=== PATIENT | male | born 1965 | race Hispanic/Latino ===

== ENCOUNTER 2023-01-12 21:23 | Emergency (ER) | payer BC ==
[~2023-01-12] VITALS: Ht 160 cm; Wt 79.4 kg
[2023-01-12 21:48] LABS: BASOPHILS # (AUTO) 0.03 K/uL (0.00-0.20); BASOPHILS % (AUTO) 0.4 % (0.0-5.0); EOSINOPHILS # (AUTO) 0.14 K/uL (0.00-0.70); HEMATOCRIT 45.2 % (42-54); IMMATURE GRANULOCYTE ABSOLUTE 0.01 K/uL (0-1); LYMPHOCYTES % (AUTO) 28.7 % (21.0-51.0); MEAN CORPUSCULAR HEMOGLOBIN 31.8 pg (27.0-33.0); MEAN CORPUSCULAR HGB CONC 35.6 g/dL (32.0-36.0); MEAN CORPUSCULAR VOLUME 89.2 fL (79-99); MONOCYTES # (AUTO) 0.4 K/uL (0.1-1.0); MONOCYTES % (AUTO) 5.8 % (3.0-13.0); NEUTROPHILS # (AUTO) 4.3 K/uL (1.8-7.7); PLATELET COUNT (AUTO) 178 K/uL (130-400); RED BLOOD CELL COUNT(AUTO) 5.07 MIL/uL (4.50-6.20); RED CELL DISTRIBUTION WIDTH 11.9 % (11.0-15.5); WHITE BLOOD COUNT (AUTO) 6.9 K/uL (4.8-10.8)
[2023-01-12 22:06] LABS: INR < 0.93 (0.85-1.15); PROTHROMBIN TIME 10.4 SEC (9.6-11.6)
[2023-01-12 22:08] LABS: PARTIAL THROMBOPLASTIN TIME 27.9 SEC (26.3-35.5)
[2023-01-12 22:13] LABS: POTASSIUM 3.6 mmol/L (3.5-5.1)
[2023-01-12 22:23] LABS: ALBUMIN 4.1 g/dL (3.5-5.0); BILIRUBIN,TOTAL 0.7 mg/dL (0.2-1.0); TOTAL PROTEIN, SERUM 8.2 g/dL (6.0-8.3)
[2023-01-12 22:26] LABS: D-DIMER 457 ng/mL (0-500)
[2023-01-12 23:24] LABS: ADD UA MICROSCOPIC NO; APPEARANCE,URINE CLEAR (CLEAR); BILIRUBIN,URINE NEGATIVE (NEGATIVE); COLOR,URINE LIGHT-YELLOW (YELLOW); GLUCOSE, URINE (UA) NEGATIVE (NEGATIVE); KETONES,URINE NEGATIVE (NEGATIVE); LEUKOCYTE ESTERASE ,URINE NEGATIVE Leu/uL (NEGATIVE); NITRATE,URINE NEGATIVE (NEGATIVE); OCCULT BLOOD,URINE NEGATIVE (NEGATIVE); PROTEIN,URINE NEGATIVE (NEGATIVE); UROBILINOGEN,URINE 0.2 mg/dL (0.2-1.0)
[2023-01-12 23:42] LABS: B-TYPE NATRIURETIC PEPTIDE 10 pg/mL (0-100)
[2023-01-13] MEDS ORDERED: IBUP-1493 PO (00:10)
[2023-01-13] MEDS ORDERED: OMEP40CA21 PO (00:10)
[2023-01-13 00:27] VITALS: BP 124/61; PULSE 53; RESP 18; O2SAT 99
== END 2023-01-13 00:28 | disposition home or self-care (01) ==
LOC: EDH 21:23
DX: R07.89 Other chest pain (principal)
CPT/HCPCS: 36415; 71045; 80053; 81003; 82550; 83735; 83880; 84484; 85025; 85378; 85610; 85730; 93005

== ENCOUNTER 2023-03-11 10:59 | Emergency (ER) | payer BC ==
[~2023-03-11] VITALS: Ht 165.1 cm; Wt 79.4 kg
[~2023-03-11 10:59] MED LIST: IBUP-1493 PO; OMEP40CA21 PO
[2023-03-11] MEDS ORDERED: FAMOTIDINE 20MG TAB ONE (11:30)
[2023-03-11] MEDS ORDERED: SOLU-MEDROL 125MG VIAL ONE (11:31)
[2023-03-11] MEDS ORDERED: DiphenhydrAMINE HCL 50 MG/ML VIAL ONE (11:31)
[2023-03-11 11:54] LABS: BASOPHILS # (AUTO) 0.03 K/uL (0.00-0.20); BASOPHILS % (AUTO) 0.4 % (0.0-5.0); EOSINOPHILS # (AUTO) 0.02 K/uL (0.00-0.70); EOSINOPHILS % (AUTO) 0.3 % (0.0-8.0); HEMATOCRIT 39.9 % (42-54); IMMATURE GRANULOCYTE ABSOLUTE 0.04 K/uL (0-1); LYMPHOCYTES # (AUTO) 0.9 K/uL (1.0-4.8); LYMPHOCYTES % (AUTO) 11.9 % (21.0-51.0); MEAN CORPUSCULAR HEMOGLOBIN 31.2 pg (27.0-33.0); MEAN CORPUSCULAR HGB CONC 36.3 g/dL (32.0-36.0); MEAN CORPUSCULAR VOLUME 85.8 fL (79-99); MONOCYTES # (AUTO) 0.1 K/uL (0.1-1.0); NEUTROPHILS # (AUTO) 6.1 K/uL (1.8-7.7); NEUTROPHILS % (AUTO) 84.8 % (40.0-77.0); PLATELET COUNT (AUTO) 178 K/uL (130-400); RED BLOOD CELL COUNT(AUTO) 4.65 MIL/uL (4.50-6.20); RED CELL DISTRIBUTION WIDTH 11.8 % (11.0-15.5); WHITE BLOOD COUNT (AUTO) 7.2 K/uL (4.8-10.8)
[2023-03-11] MEDS ORDERED: DICYCLOMINE 20MG (10MG/ML) AMP IM ONE (12:00)
[2023-03-11] MEDS ORDERED: DiphenhydrAMINE HCL 50 MG/ML VIAL IV ONE (12:00)
[2023-03-11] MEDS ORDERED: SOLU-MEDROL 125MG VIAL IVP ONE (12:00)
[2023-03-11] MEDS ORDERED: FAMOTIDINE 20MG TAB PO ONE (12:00)
[2023-03-11] MEDS ORDERED: 0.9%NACL 1000ML 1,000 ML IV ONE (12:00)
[2023-03-11] MEDS ORDERED: ONDANSETRON 4MG INJ IVP ONE (12:00)
[2023-03-11 12:04] LABS: CREATININE 0.8 mg/dL (0.5-1.5); POTASSIUM 4.3 mmol/L (3.5-5.1)
[2023-03-11 12:12] LABS: ALBUMIN 3.5 g/dL (3.5-5.0); BILIRUBIN,TOTAL 0.8 mg/dL (0.2-1.0); TOTAL PROTEIN, SERUM 7.6 g/dL (6.0-8.3)
[2023-03-11 12:29] LABS: APPEARANCE,URINE CLEAR (CLEAR); BILIRUBIN,URINE NEGATIVE (NEGATIVE); COLOR,URINE COLORLESS (YELLOW); GLUCOSE, URINE (UA) NEGATIVE (NEGATIVE); KETONES,URINE NEGATIVE (NEGATIVE); LEUKOCYTE ESTERASE ,URINE NEGATIVE Leu/uL (NEGATIVE); NITRATE,URINE NEGATIVE (NEGATIVE); OCCULT BLOOD,URINE NEGATIVE (NEGATIVE); PH,URINE 7.5 (5.0-8.0); PROTEIN,URINE NEGATIVE (NEGATIVE); UROBILINOGEN,URINE 0.2 mg/dL (0.2-1.0)
[2023-03-11 12:34] LABS: ADD UA MICROSCOPIC NO
[2023-03-11] MEDS ORDERED: ONDA4TAB10 PO (13:26)
[2023-03-11] MEDS ORDERED: OMEP20TA20 PO (13:26)
[2023-03-11] MEDS ORDERED: LORA10TA7 PO (13:26)
[2023-03-11 13:42] VITALS: BP 129/78; PULSE 60; RESP 14; O2SAT 100
== END 2023-03-11 13:42 | disposition home or self-care (01) ==
LOC: EDH 10:59
DX: A05.9 Bacterial foodborne intoxication, unspecified (principal); T50.905A Adverse effect of unspecified drugs, medicaments and biological substances, initial encounter; R19.7 Diarrhea, unspecified; Z79.899 Other long term (current) drug therapy; Z98.890 Other specified postprocedural states; Z88.8 Allergy status to other drugs, medicaments and biological substances; Y92.89 Other specified places as the place of occurrence of the external cause
CPT/HCPCS: 99284; 96374; 96375; 96361; 84484; 80053; 83690; 85025; 81003; 36415; 93005; 96372; J1200; J7030; J2930; J2405; J0500

== ENCOUNTER 2025-02-26 20:29 | Emergency (ER) | payer BC ==
[~2025-02-26] VITALS: Ht 165.1 cm; Wt 71.2 kg
[~2025-02-26 20:29] MED LIST changes: +LORA10TA7 PO; +OMEP20TA20 PO; +ONDA-243 PO
[2025-02-26 23:19] VITALS: BP 145/60; PULSE 55; RESP 19; TEMP 98.3; O2SAT 100
--- NOTE | 2025-02-26 23:22 | ERN ---
General Chief Complaint: Low Back Pain/Injury Stated Complaint: C/O LOWER BACK AFTER TRIPPING AND FALLING TODAY Time Seen by MD: 20:35 History of Present Illness Initial Comments 59-year-old male who presents for lung there were pain. Patient had a fall few days ago. He has been having some lumbar soreness. He had x-rays from outside facility which showed arthritis. He reports that he has been taking ibuprofen and Tylenol for discomfort. He is neurovascularly intact. He reports that the main raised in his here because he is having a hard time standing on his back throughout the day at work in his requesting a work note. Allergies: Coded Allergies: doxycycline (Unverified Allergy, Severe, 03/11/23) Home Meds Active Scripts Loratadine (Loratadine) 10 Mg Tablet, 10 MG PO DAILY, #7 TAB Prov:MERLY CLARK V RNFA 03/11/23 Omeprazole (Omeprazole) 20 Mg Tablet.dr, 20 MG PO DAILY for 14 Days, #14 TAB Prov:MERLY CLARK V RNFA 03/11/23 Ondansetron (Ondansetron Odt) 4 Mg Tab.rapdis, 4 MG PO TID for 2 Days, #6 TAB Prov:MERLY CLARK V RNFA 03/11/23 Omeprazole (Omeprazole) 40 Mg Capsule.dr, 40 MG PO DAILY, #30 CAP Prov:EMELINA ORELLANA MD 01/13/23 Ibuprofen (Motrin/Advil) 800 Mg Tab, 800 MG PO TIDP PRN for PAIN, #30 TAB Prov:EMELINA ORELLANA MD 01/13/23 Past Medical History Past Medical History: No Pertinent History Medical History Other: LOW TESTOSTERONE Past Surgical History: Other Surgical History Other: TESTICLE Family History Family History: HTN Social History Social History: Negative, Lives with family ROS Dictation CONSTITUTIONAL: No chills, no fever, no weakness, no diaphoresis, no malaise. HEAD/FACE: No signs of trauma. EENT: No eye pain, no blurred vision, no tearing, no double vision, no ear pain, no ear discharge, no nose pain, no nasal congestion, no throat pain, no throat swelling, no mouth pain. RESPIRATORY: No cough, no orthopnea, no SOB, no stridor, no wheezing. CARDIOVASCULAR: No chest pain, no edema, no palpitations, no syncope. GASTROINTESTINAL/ABDOMINAL: No abdominal pain, no constipation, no diarrhea, no nausea, no vomiting. GENITOURINARY: No abnormal discharge, no dysuria, no frequent urination, no hematuria. No complaints of pain in the genitals. MUSCULOSKELETAL: No back pain, no gout, no joint pain, no joint swelling, no muscle pain, no muscle stiffness, no neck pain. INTEGUMENTARY: No change in color, no change in hair/nails, no dryness, no lesion, no lumps, no rash. NEUROLOGICAL/PSYCH: No anxiety, not depressed, no emotional problem, no headache, no numbness, no pre-existing deficit, no history of seizures, no tremors, no weakness. HEMATOLOGIC/LYMPHATIC: Not anemic, no history of blood clots, no apparent bleeding, no bruising, glands not swollen. All Systems Negative, Except as Noted. Physical Exam Physical Exam Dictation VITAL SIGNS: Reviewed. GENERAL APPEARANCE: Alert, oriented x3, no acute distress, obese. HEAD AND FACE: Non-traumatic. EYES: PERRL, pink conjunctivas, eyelid no trauma, anterior chamber clear. EARS: Pinnas intact and no signs of trauma or erythema. Ear canals clear and no discharge. TMs no erythema. NOSE: No discharge, no bleeding. OROPHARYNX: Mouth normal, teeth no caries, tongue pink. Pharynx clear, no erythema. Tonsils no exudates, no abscesses noted. Mucous membrane moist. NECK: Supple, non-tender, no thyromegaly, no masses, no JVD, no bruits. BREAST: Deferred. CHEST: No tenderness, no crepitus, no paradoxical movement, no retractions. LUNGS: Clear, well-ventilated, symmetric, no rales, no wheezing, no rhonchi, no stridor, good breath sounds bilaterally. HEART: Regular rate, regular rhythm, no murmur, no gallops. VASCULAR: No peripheral edema. ABDOMEN: Soft, positive bowel sounds, nondistended, no guarding, nontender, no rebound, no masses no hepatomegaly, no splenomegaly, no Sagastume's sign, no hernias. RECTAL: Deferred. GENITAL: Deferred. NEUROLOGICAL: Normal speech, gross motor function intact, gross sensory function intact. MUSCULOSKELETAL: Neck nontender, full range of motion, back nontender, full range of motion. EXTREMITIES: Nontender, full range of motion. SKIN: Color pink, dry, no turgor, no rash, no lacerations, no abrasions, no contusions. LYMPHATICS: Deferred. MDM CC: Lower back pain Historian: Patient Comorbidities: None Limitations: None Differential diagnosis: MSK type pain Patient has no red such as back pain. No midline tenderness, neurovascular intact Kerry flex and extend the hips, knees, ankles. He is ambulatory. No anesthesias. No fevers. He has already had imaging done He is requesting a work note. He already has pain medications at home. We will DC. ED Course Vital Signs Date Time Temp Pulse Resp B/P (MAP) Pulse Ox O2 Delivery O2 Flow Rate FiO2 02/26/25 23:19 98.2 55 19 145/60 100 Room Air* 0 21 02/26/25 20:36 97.5 54 20 134/70 99 Room Air DX & DISP Disposition: Discharge Departure Impression: Primary Impression: Musculoskeletal back pain Condition: Stable Additional Instructions: Your symptoms are consistent with a musculoskeletal type back pain. Take the pain medications as prescribed. Follow up with the primary doctor. Return to the emergency department as needed. Referrals: SELF,REFERRAL (PCP) JOAN DOYLE DO Feb 26, 2025 23:22
== END 2025-02-26 23:27 | disposition home or self-care (01) ==
LOC: EDH 20:29
DX: M54.50 Low back pain, unspecified (principal); M19.90 Unspecified osteoarthritis, unspecified site; Z79.899 Other long term (current) drug therapy; Z82.49 Family history of ischemic heart disease and other diseases of the circulatory system; Z88.1 Allergy status to other antibiotic agents; W01.0XXA Fall on same level from slipping, tripping and stumbling without subsequent striking against object, initial encounter; Y93.89 Activity, other specified; Y92.89 Other specified places as the place of occurrence of the external cause; Y99.8 Other external cause status
CPT/HCPCS: 99282